=== PATIENT | female | born 1980 | race Caucasian/White ===

== ENCOUNTER 2021-06-17 02:52 | Emergency (ER) | payer OTHER ==
[~2021-06-17] VITALS: Ht 162.6 cm; Wt 66.0 kg
[~2021-06-17 02:52] MED LIST: NAPR-679 MT
[2021-06-17 04:53] LABS: CHLORIDE 113 mEq/L (98-107)
[2021-06-17] MEDS ORDERED: ACETAMINOPHEN 325MG TABLET PO ONE (06:15)
[2021-06-17] MEDS ORDERED: IBUPROFEN 400MG TABLET PO ONE (06:15)
[2021-06-17] MEDS ORDERED: IOHEXOL-350 100 ML BOTTLE ONE (06:31)
[2021-06-17 07:02] VITALS: BP 121/82
== END 2021-06-17 07:03 | disposition home or self-care (01) ==
LOC: ER 02:52
DX: S10.0XXA Contusion of throat, initial encounter (principal); Z98.890 Other specified postprocedural states; X58.XXXA Exposure to other specified factors, initial encounter; Y93.89 Activity, other specified; Y92.89 Other specified places as the place of occurrence of the external cause; Y99.8 Other external cause status
CPT/HCPCS: 36415; 70498; 80048; 81025; 99284; Q9967